=== PATIENT | female | born 1985 | race Caucasian/White ===

== ENCOUNTER 2016-11-15 | Outpatient (CLI) | payer MEDICAID | END 2016-11-15 15:35 | disposition critical access hospital (66) | DX: R06.00 Dyspnea, unspecified (principal) | CPT/HCPCS: A0425; A0427 ==

== ENCOUNTER 2016-11-15 16:00 | Inpatient (IN) | payer MEDICAID ==
[2016-11-15] MEDS ORDERED: ALBUTEROL NEB 2.5 MG/3 ML INH STA ×2 (16:06→17:59)
[2016-11-15] MEDS ORDERED: ALBUTEROL NEB 2.5 MG/3 ML INH ONE ×2 (16:33→18:07)
[2016-11-15] MEDS ORDERED: IOPAMIDOL-300 100 ML VIAL IVP ONE (17:38)
[2016-11-15] MEDS ORDERED: SODIUM CHLORIDE FLUSH 0.9% 10 ML SYRINGE IVP PRN (18:30)
[2016-11-15] MEDS ORDERED: ONDANSETRON 4 MG/2 ML VIAL IVP PRN (18:30)
[2016-11-15] MEDS ORDERED: ACETAMINOPHEN 325 MG TABLET PO PRN (18:30)
[2016-11-15] MEDS ORDERED: MAGNESIUM SULFATE 1 GM/2 ML VIAL IVP STA (18:36)
[2016-11-15] MEDS ORDERED: AZITHROMYCIN 250 MG TABLET PO STA (19:07)
[2016-11-15] MEDS ORDERED: MAGNESIUM SULFATE 2 GRAM 50 ML IV SCH (20:00)
[2016-11-15] MEDS: SODIUM CHLORIDE 0.9% 1,000 ML IV SCH ×2 (20:01→20:07)
[2016-11-15] MEDS: MORPHINE 2 MG/ML SYRINGE IVP PRN (21:35)
[2016-11-15] MEDS: AMOX/CLAV 875 MG/125 MG TABLET PO SCH (21:37)
[2016-11-15] MEDS: SODIUM CHLORIDE FLUSH 0.9% 10 ML SYRINGE IVP SCH (21:39)
[2016-11-15] MEDS ORDERED: diphenhydrAMINE INJ 50 MG/ML VIAL IVP PRN (21:48)
[2016-11-15] MEDS ORDERED: LORazepam 0.5 MG TABLET PO PRN (21:48)
[2016-11-16] MEDS: MORPHINE 2 MG/ML SYRINGE IVP PRN ×4 (01:35→13:08)
[2016-11-16] MEDS: ALBUTEROL NEB 2.5 MG/3 ML INH PRN ×2 (05:00→08:16)
[2016-11-16] MEDS: SODIUM CHLORIDE 0.9% 1,000 ML IV SCH ×2 (05:46→08:35)
[2016-11-16] MEDS ORDERED: methylPREDNISolone SUCCINATE 125 MG/2 ML VIAL IVP SCH ×2 (06:00)
[2016-11-16] MEDS: SODIUM CHLORIDE FLUSH 0.9% 10 ML SYRINGE IVP SCH ×2 (06:06→10:57)
[2016-11-16] MEDS: AMOX/CLAV 875 MG/125 MG TABLET PO SCH (08:35)
[2016-11-16] MEDS: NEUTRA-PHOS 250 MG TABLET PO SCH ×2 (08:48→13:04)
[2016-11-16] MEDS ORDERED: NICOTINE 14 MG PATCH TOP SCH (09:00)
[2016-11-16] MEDS ORDERED: ENOXAPARIN 40 MG/0.4 ML SYRINGE SUBQ SCH (09:00)
[2016-11-16] MEDS ORDERED: POLYETHYLENE GLYCOL 3350 17 GM PACKET PO SCH (09:00)
[2016-11-16] MEDS ORDERED: FLUCONAZOLE 100 MG TABLET PO SCH (09:00)
== END 2016-11-16 14:33 | disposition left against medical advice (07) | DRG 189 ==
DX: J96.01 Acute respiratory failure with hypoxia (principal); J45.901 Unspecified asthma with (acute) exacerbation; E46 Unspecified protein-calorie malnutrition; Z68.1 Body mass index [BMI] 19.9 or less, adult; E83.39 Other disorders of phosphorus metabolism; M27.2 Inflammatory conditions of jaws; K08.199 Complete loss of teeth due to other specified cause, unspecified class; F17.210 Nicotine dependence, cigarettes, uncomplicated; Z98.890 Other specified postprocedural states; Z71.6 Tobacco abuse counseling

== ENCOUNTER 2017-06-19 10:57 | Emergency (ER) | payer MEDICAID ==
[2017-06-19] MEDS ORDERED: ALBUTEROL NEB 2.5 MG/3 ML INH ONE ×3 (11:28→14:38)
[2017-06-19] MEDS: ALBUTEROL NEB 2.5 MG/3 ML INH STA ×2 (11:39→14:37)
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
[2017-06-19] MEDS: DEXAMETHASONE 10 MG/ML VIAL PO STA (12:02)
[2017-06-19] MEDS ORDERED: DEXAMETHASONE 10 MG/ML VIAL ONE (12:05)
[2017-06-19] MEDS ORDERED: CHERRY SYRUP 10 ML UDC PO ONE (12:05)
[2017-06-19 12:48] LABS: ABG ANALYSIS TIME 1220; ABG HCO3 27.5 mmol/L (22.0-26.0); ABG PCO2 50 mmHg (34-45); ABG PH 7.36 (7.35-7.45)
[2017-06-19 12:49] LABS: ABG BASE EXCESS 1.4 mmol/L (-2.0-3.0); ABG O2 DEVICE NASAL CANNULA; ABG SATURATION PULSE OXIMETRY% 92 %; ABG SITE OF DRAW RIGHT RADIAL; ALLEN TEST POSITIVE
[2017-06-19 12:51] LABS: ABG PO2 49 mmHg (80-100)
[2017-06-19 12:52] LABS: ABG OXYGEN SATURATION 83 % (94-98)
--- NOTE | 2017-06-19 13:09 | XRAY Preliminary Report ---
Exam: XR Chest 2 View PA/LAT IMPRESSION: Normal 2-view chest radiography. [facility] SITE ID: [id number]
--- NOTE | 2017-06-19 13:16 | XRAY Report ---
EXAM: CHEST RADIOGRAPHY EXAM DATE: 06/19/2017 12:30 PM. CLINICAL HISTORY: Shortness of air, cough. COMPARISON: None. TECHNIQUE: 2 views. FINDINGS: Lungs/Pleura: No focal opacities evident. No pleural effusion. No pneumothorax. Normal volumes. Mediastinum: Heart and mediastinal contours are unremarkable. Other: None. IMPRESSION: Normal 2-view chest radiography. [facility] Referring Provider Line: [phone] SITE ID: [id number]
[2017-06-19 14:08] VITALS: BP 108/61
[2017-06-19] MEDS: IPRATROPIUM 0.2 MG/ML NEB INH STA (14:37)
[2017-06-19] MEDS ORDERED: IPRATROPIUM 0.2 MG/ML NEB INH ONE (14:39)
== END 2017-06-19 15:16 | disposition left against medical advice (07) ==
LOC: ED 10:57
DX: J45.909 Unspecified asthma, uncomplicated (principal); R09.02 Hypoxemia; R41.82 Altered mental status, unspecified; F17.200 Nicotine dependence, unspecified, uncomplicated
CPT/HCPCS: 36600; 71020; 82803; 87275; 87276; 94640; 94664; 99283; 99284

== ENCOUNTER 2017-10-13 15:14 | Outpatient (CLI) | payer MEDICAID | END 2017-10-13 15:15 | disposition short-term general hospital (02) | LOC: EMS 15:14 | PROVIDERS: ATTEND Surgery | DX: R06.00 Dyspnea, unspecified (principal); R53.1 Weakness | CPT/HCPCS: A0425; A0429 ==

== ENCOUNTER 2018-01-16 19:59 | Outpatient (CLI) | payer MEDICAID | END 2018-01-16 20:00 | disposition short-term general hospital (02) | LOC: EMS 19:59 | PROVIDERS: ATTEND Surgery | DX: R06.00 Dyspnea, unspecified (principal) | CPT/HCPCS: A0425; A0433 ==